=== PATIENT | female | born 1980 | race Two or more races ===

== ENCOUNTER 2018-04-15 22:59 | Inpatient (IN) | payer OTHER ==
[~2018-04-15] VITALS: Ht 175.3 cm; Wt 92.1 kg
[2018-04-15 23:04] VITALS: Ht 175.3 cm; Wt 92.1 kg
[2018-04-15 23:57] LABS: BASOPHIL % 0.6 % (0-2); PLATELET COUNT 435 x10^3mcL (130-400); RED CELL DISTRIBUTION WIDTH 15.3 % (11.5-14.5)
[2018-04-16 00:15] LABS: FREE T4 0.97 ng/dL (0.76-1.46)
[2018-04-16 00:26] LABS: CALCIUM 8.4 mg/dL (8.5-10.1); CARBON DIOXIDE 24.3 mmol/L (21-32); CHLORIDE SERUM 105 mmol/L (98-107); GFR1 > 60 mL/min; GLUCOSE SERUM 148 mg/dL (74-106); POTASSIUM SERUM 3.5 mmol/L (3.5-5.1); SODIUM SERUM 142 mmol/L (136-145)
[2018-04-16 00:32] LABS: ALBUMIN 3.1 g/dL (3.4-5.0); ALKALINE PHOSPHATASE 68 U/L (46-116); ALT/SGPT 59 U/L (14-59); AST/SGOT 125 U/L (15-37); BILIRUBIN TOTAL 0.2 mg/dL (0.20-1.00); LIPASE 205 IU/L (73-393); TOTAL PROTEIN, SERUM 6.8 g/dL (6.4-8.2)
[2018-04-16 00:40] LABS: UA SPECIFIC GRAVITY >=1.030 (1.005-1.035); microscopic required? YES; urine erythrocyte NEGATIVE (NEGATIVE)
[2018-04-16 00:53] LABS: AMPHETAMINE QUAL UR NONE DETECTED (See below)
[2018-04-16] MEDS ORDERED: COZAAR50 M1 PO (01:47)
[2018-04-16] MEDS ORDERED: ZYR10 PO (01:49)
[2018-04-16] MEDS ORDERED: MONTELUKAST SOD10 M1 PO (01:50)
[2018-04-16 02:30] LABS: MAGNESIUM 2.1 mg/dL (1.8-2.4); PHOSPHOROUS 3.7 mg/dL (2.5-4.9)
[2018-04-16 02:49] LABS: TOTAL IRON BINDING CAPACITY 439 ug/dL (250-450)
[2018-04-16 02:50] LABS: IRON 26 ug/dL (50-170)
[2018-04-16 03:40] VITALS: BP 118/68
[2018-04-16 05:37] LABS: BASOPHIL % 0.3 % (0-2)
[2018-04-16 05:39] LABS: PLATELET COUNT 435 x10^3mcL (130-400); RED CELL DISTRIBUTION WIDTH 15.1 % (11.5-14.5)
[2018-04-16 06:37] VITALS: BP 117/70
[2018-04-16 06:55] LABS: CALCIUM 8.6 mg/dL (8.5-10.1); CARBON DIOXIDE 26.9 mmol/L (21-32); CHLORIDE SERUM 105 mmol/L (98-107); CREATININE SERUM 0.9 mg/dL (0.6-1.0); GFR1 > 60 mL/min; GLUCOSE SERUM 98 mg/dL (74-106); POTASSIUM SERUM 4.4 mmol/L (3.5-5.1); SODIUM SERUM 142 mmol/L (136-145)
[2018-04-16 09:26] VITALS: BP 123/69
[2018-04-16 12:54] VITALS: BP 123/69
[2018-04-16 13:02] VITALS: BP 126/81
== END 2018-04-16 15:33 | disposition home or self-care (01) | DRG 73 ==
LOC: ED 22:59 → DU 04-16 01:14
PROVIDERS: Emergency Medicine; Family Medicine
DX: G90.9 Disorder of the autonomic nervous system, unspecified (principal); N17.0 Acute kidney failure with tubular necrosis; M62.82 Rhabdomyolysis; E44.0 Moderate protein-calorie malnutrition; E87.2 Acidosis; D64.9 Anemia, unspecified; R74.0 Nonspecific elevation of levels of transaminase and lactic acid dehydrogenase [LDH]; I10 Essential (primary) hypertension; Z82.0 Family history of epilepsy and other diseases of the nervous system; Z68.29 Body mass index [BMI] 29.0-29.9, adult; E86.0 Dehydration
CPT/HCPCS: 83880; 84439; G0480; J1644; J7030; J8597; Q0092